=== PATIENT | male | born 2000 | race Two or more races ===

== ENCOUNTER 2022-03-18 12:51 | Emergency (ER) | payer SELFPAY ==
[~2022-03-18] VITALS: Ht 185.4 cm; Wt 64.4 kg
[2022-03-18] MEDS ORDERED: HYDROcodone-ACET 10/325MG TAB PO ONE (14:15)
[2022-03-18 16:10] VITALS: BP 111/73
== END 2022-03-18 16:06 | disposition home or self-care (01) ==
LOC: ER 12:51
DX: Z98.890 Other specified postprocedural states (principal)